=== PATIENT | female | born 1970 | race Hispanic/Latino ===

== ENCOUNTER 2021-11-05 04:44 | Emergency (ER) | payer SELFPAY ==
[2021-11-05] MEDS ORDERED: diphenhydrAMINE 50 MG/ML VIAL IV ONE (05:08)
[2021-11-05] MEDS ORDERED: LIDOCAINE (4%) 40 MG/ML TOPICAL SOLN 50 ML BOTTLE TP ONE (05:08)
[2021-11-05] MEDS ORDERED: METOCLOPRAMIDE 10 MG/2 ML INJ IV ONE (05:08)
--- NOTE | 2021-11-05 05:09 | Event Note ---
Date: 11/05/21 Verbal report received from emergency medical services. EMS documentation not available at time of chart dictation Medical screening examination note: 50-year-old female who states that she is not , who reports that she is COVID-19 vaccinated, presenting with frontal and occipital headache for 1 week which is intermittent. Patient taking ibuprofen [id number] with minimal relief of symptoms. Denies loss of vision, neck pain or stiffness, fevers chills, loss of taste and smell. EMS reports unremarkable vital signs with ex ception of mildly elevated blood pressure. On initial assessment patient is awake, laying on her side, and does not appear to be in any acute distress. She has the lights off and her eyes closed. Start Reglan, Benadryl, intranasal lidocaine, detailed history and physical to be performed by oncoming ER provider Vital Signs 11/05/21 04:49 Temperature 98.9 F Pulse Rate 98 H Respiratory 18 Rate Blood Pressure 160/100 O2 Sat by Pulse 98 Oximetry
[2021-11-05] MEDS ORDERED: SODIUM CHLORIDE 0.9% 500 ML 500 ML IV ONE (05:18)
[2021-11-05] MEDS ORDERED: KETOROLAC 30 MG/1 ML INJ IV ONE (06:26)
[2021-11-05 06:45] LABS: Basophils % (Auto) 0.2 % (0.0-1.8); Eosinophils % (Auto) 0.7 % (0.0-4.3); Hematocrit 49.9 % (30.3-42.9); Hemoglobin 16.2 gm/dl (10.1-14.3); Lymphocytes # (Auto) 0.5 K/mm3 (1.2-5.4); Mean Corpuscular HGB Conc 33 % (30-34); Mean Corpuscular Volume 82 fl (79-97); Monocytes # (Auto) 0.3 K/mm3 (0.0-0.8); Platelet Count 205 K/mm3 (140-440); Red Blood Count 6.07 M/mm3 (3.65-5.03); Red Cell Distribution Width 14.1 % (13.2-15.2)
--- NOTE | 2021-11-05 06:57 | Emergency Department Report ---
ED Headache HPI - General Chief Complaint: Headache Stated Complaint: HEADACHE Time Seen by Provider: 11/05/21 06:19 - History of Present Illness Initial Comments: 50-year-old female with no history of migraine headache who presented with intermittent headache that been going on for about a week. She has tried ibuprofen with minimal improvement. Patient denies any other medical history including hypertension. Patient was noticed to have elevated blood pressure as systolic of 180/110 mmHg on presentation. Patient was initially screened by previous physician and started on intranasal lidocaine, Benadryl and Reglan with IV fluid normal saline. Patient reports some improvement with headache but still rated at 8/10. Headache is radiating from the back to the front of the head. No fever or chills reported. Patient also reports some light sensitivity. Light in the examination room without turned off. Patient also denied any neck stiffness. No recent cold symptoms reported. Patient denies any other modifying or associated factors. Allergies/Adverse Reactions: Allergies No Known Allergies Allergy (Unverified 11/05/21 04:57) ED Review of Systems ROS: Stated complaint: HEADACHE Other details as noted in HPI Comment: All other systems reviewed and negative Eyes: other (Light sensitivity) Neurological: headache ED Past Medical Hx - Past Medical History Previous Medical History?: No - Surgical History Past Surgical History?: No - Social History Smoking Status: Never Smoker Substance Use Type: None ED Physical Exam - General Limitations: No Limitations General appearance: alert, in no apparent distress - Head Head exam: Present: atraumatic, normocephalic, normal inspection - Eye Eye exam: Present: other (Photophobia) Pupils: Present: normal accommodation, other (Light sensitivity) - ENT ENT exam: Present: normal exam, normal orophraynx, TM's normal bilaterally - Neck Neck exam: Present: normal inspection, full ROM. Absent: tenderness, meningismus - Respiratory Respiratory exam: Present: normal lung sounds bilaterally. Absent: respiratory distress, accessory muscle use - Cardiovascular Cardiovascular Exam: Present: regular rate, normal rhythm, normal heart sounds - GI/Abdominal GI/Abdominal exam: Present: soft, normal bowel sounds. Absent: distended, tenderness - Extremities Exam Extremities exam: Present: normal inspection. Absent: full ROM, tenderness, normal capillary refill - Back Exam Back exam: Present: normal inspection - Neurological Exam Neurological exam: Present: alert, altered. Absent: oriented X3 - Psychiatric Psychiatric exam: Present: normal affect, normal mood - Skin Skin exam: Present: warm, intact, normal color - Other Other exam information: Noted with elevated blood pressure which according to the bedside nurse is much better than when the patient came in she still have the lidocaine embedded stick in both nostrils. ED Course Vital Signs 11/05/21 11/05/21 11/05/21 04:49 05:13 05:15 Temperature 98.9 F Pulse Rate 98 H 94 H 86 Respiratory 18 8 L 21 Rate Blood Pressure 160/100 176/103 Blood Pressure [Left] O2 Sat by Pulse 98 97 Oximetry 11/05/21 11/05/21 11/05/21 05:31 05:45 06:01 Temperature Pulse Rate 95 H 94 H 94 H Respiratory 20 24 22 Rate Blood Pressure 186/112 186/112 174/72 Blood Pressure [Left] O2 Sat by Pulse 96 97 98 Oximetry 11/05/21 11/05/21 11/05/21 06:15 06:31 06:45 Temperature Pulse Rate 93 H 98 H 98 H Respiratory 21 24 15 Rate Blood Pressure 174/72 167/107 167/107 Blood Pressure [Left] O2 Sat by Pulse 96 96 98 Oximetry 11/05/21 11/05/21 11/05/21 07:01 07:15 07:30 Temperature Pulse Rate 92 H 92 H Respiratory 16 17 Rate Blood Pressure 154/106 154/106 Blood Pressure [Left] O2 Sat by Pulse 98 98 98 Oximetry 11/05/21 11/05/21 11/05/21 07:31 07:45 08:01 Temperature Pulse Rate 89 90 86 Respiratory 16 17 15 Rate Blood Pressure 158/100 158/100 160/101 Blood Pressure [Left] O2 Sat by Pulse 100 99 100 Oximetry 11/05/21 11/05/21 11/05/21 08:15 08:31 08:45 Temperature Pulse Rate 89 85 83 Respiratory 15 14 12 Rate Blood Pressure 160/101 151/97 151/97 Blood Pressure [Left] O2 Sat by Pulse 100 100 99 Oximetry 11/05/21 11/05/21 11/05/21 09:01 09:15 09:23 Temperature Pulse Rate 85 92 H Respiratory 15 15 Rate Blood Pressure 150/83 150/83 Blood Pressure 144/85 [Left] O2 Sat by Pulse 100 99 Oximetry - Reevaluation(s) Reevaluation #1: 11/05/21 06:59 Patient has already been given intranasal lidocaine, Benadryl, Reglan, with IV fluid hydration. We will go ahead and add Toradol 30 mg IV x1. We will continue to monitor patient progress. Also we will go ahead and order basic labs including CBC, CMP, UA and drug screen concerning that this headache is been going on for more than a week and noted with elevated blood pressure. With this we will rule out any infectious process or electrolyte imbalance. Reevaluation #2: 11/05/21 08:04 Patient reports feeling better after the Toradol pain medication. Some of this patient labs are still pending at this point. We will continue to monitor. Reevaluation #3: 11/05/21 09:38 Patient reported feeling much better and asked to have something to eat and she was fed. Blood pressure noted to be much improved at 144/85. Patient labs reviewed to be reassuring and could not explain patient hypertensive state. So this patient hypertensive crisis is likely as a result of headache. Patient is stable to be discharged home to follow-up with her primary doctor in the next 3 to 5 days. Patient given warning to return to emergency room if symptoms worsen. ED Medical Decision Making - Lab Data Result diagrams: 11/05/21 06:29 11/05/21 06:29 Critical care attestation.: If time is entered above; I have spent that time in minutes in the direct care of this critically ill patient, excluding procedure time. ED Disposition Clinical Impression: Pre-hypertension Headache Qualifiers: Headache type: unspecified Headache chronicity pattern: episodic headache Intractability: not intractable Qualified Code(s): R51.9 - Headache, unspecified Disposition: 01 HOME / SELF CARE / HOMELESS Is pt being admited?: No Does the pt Need Aspirin: No Condition: Stable Instructions: Preventing Hypertension Additional Instructions: Increase your daily fluid to help your hydration It is very important to call and follow-up with your primary doctor so your blood pressure will be rechecked and re-evaluate you for antihypertensive medication need. Please do not hesitate to check and record your blood pressure daily on a diary and take that diary to your primary doctor. Please do not hesitate to call or return to emergency room if your symptoms worsen Continue to maintain adequate rest Referrals: PRIMARY MD VIVIANE [Primary Care Provider] - 3-5 Days Time of Disposition: 09:43
[2021-11-05 07:02] LABS: Alanine Aminotransferase 21 units/L (7-56); Albumin 4.4 g/dL (3.9-5); Blood Urea Nitrogen 8 mg/dL (7-17); Calcium 8.8 mg/dL (8.4-10.2); Hemolysis Index 12
[2021-11-05 07:15] LABS: BUN/Creatinine Ratio 13
[2021-11-05 09:24] VITALS: BP 144/85
== END 2021-11-05 10:00 | disposition home or self-care (01) ==
LOC: ED 04:44
DX: R51.9 Headache, unspecified (principal)
CPT/HCPCS: 36415; 80053; 83690; 85025; 96374; 96375; 99284; J1200; J1885; J2765; J7040; 96361